=== PATIENT | female | born 1940 | race American Indian/Alaskan Native ===

== ENCOUNTER 2018-02-25 09:24 | Emergency (ER) | payer MEDICARE, OTHER ==
[2018-02-25 09:29] VITALS: TEMP 98.1
[2018-02-25 11:11] LABS: ALB/GLOB RATIO 1.2 (1.0-2.1); ALBUMIN 4.2 g/dL (3.5-5.0); ALT/SGPT 23 U/L (9-52); AST/SGOT 16 U/L (14-36); BASO % 1.2 % (0.0-2.0); BLOOD UREA NITROGEN 10 mg/dl (7-17); CALCIUM 9.8 mg/dL (8.4-10.2); EOS % 0.9 % (0.0-4.0); GFR NON-AFRICAN AMERICAN > 60; HEMOGLOBIN 13.8 g/dL (12.0-16.0); LYMPH # 1.3 K/uL (1.0-4.3); LYMPH % 32.8 % (20.0-40.0); MEAN CELL VOLUME 89.3 fl (81.0-99.0); MEAN CORPUSCULAR HEMOGLOBIN 28.1 pg (27.0-31.0); MEAN CORPUSCULAR HGB CONC 31.5 g/dL (33.0-37.0); MEAN PLATELET VOLUME 8.6 fl (7.2-11.7); MONO # 0.4 K/uL (0.0-0.8); MONO % 10.6 % (0.0-10.0); NEUT # 2.1 K/uL (1.8-7.0); NEUT % 54.5 % (50.0-75.0); NRBC % 0.2 % (0.0-0.0); RBC 4.92 Mil/uL (3.80-5.20); RED CELL DISTRIBUTION WIDTH 14.3 % (11.5-14.5); WHITE BLOOD COUNT 3.9 K/uL (4.8-10.8)
--- NOTE | 2018-02-25 11:41 | ED PDOC ---
HPI: Psych/Substance Abuse Time Seen by Provider: 02/25/18 09:51 Chief Complaint (Nursing): Psychiatric Evaluation History Per: Family (According to patient's , Jess is schizophrenic and occasionally becomes uncooperative and not make any sense. States that she has refused medications and personal hygiene at home. The patient is not capable of cooperating with relaying how she is feeling. ) Past Medical History Reviewed: Historical Data, Nursing Documentation, Vital Signs Vital Signs: Last Vital Signs Temp 98.1 F 02/25/18 09:28 Pulse 96 H 02/25/18 09:28 Resp BP 132/96 H 02/25/18 09:28 Pulse Ox 100 02/25/18 09:28 - Medical History PMH: No Chronic Diseases, Schizophrenia - Family History Family History: States: No Known Family Hx - Living Arrangements Living Arrangements: With Family - Allergies Allergies/Adverse Reactions: Allergies Allergy/AdvReac Type Severity Reaction Status Date / Time No Known Allergies Allergy Verified 02/25/18 09:33 Review of Systems ROS Statement: Except As Marked, All Systems Reviewed And Found Negative Review Of Systems: ROS cannot be obtained secondary to pt's inabilty to answer questions. Physical Exam - Reviewed Nursing Documentation Reviewed: Yes Vital Signs Reviewed: Yes - Physical Exam Appears: Positive for: Well, Non-toxic, No Acute Distress Head Exam: Positive for: ATRAUMATIC, NORMAL INSPECTION, NORMOCEPHALIC Skin: Positive for: Normal Color, Warm, DRY Eye Exam: Positive for: EOMI, Normal appearance, PERRL ENT: Positive for: Normal ENT Inspection Neck: Positive for: Normal, Painless ROM Cardiovascular/Chest: Positive for: Regular Rate, Rhythm Respiratory: Positive for: CNT, Normal Breath Sounds Gastrointestinal/Abdominal: Positive for: Normal Exam, Soft Back: Positive for: Normal Inspection Extremity: Positive for: Normal ROM Neurologic/Psych: Positive for: Alert, Oriented - Laboratory Results Result Diagrams: 02/25/18 10:50 02/25/18 10:50 - ECG O2 Sat by Pulse Oximetry: 100 Medical Decision Making Medical Decision Making: does not have legal guardianship. patient to be referred for [facility] [place] medical clearance. Patient is medically cleared for [facility] [place]. Disposition - Clinical Impression Clinical Impression: Psychiatric disorder, Schizophrenia - Patient ED Disposition Is Patient to be Admitted: Transfer of Care - Disposition Disposition: Transfer of Care Disposition Time: 15:35 Condition: FAIR Instructions: Schizophrenia Forms: [facility] (Yakut) Patient Signed Over To: Jenn Ulloa Present On Arrival: None
--- NOTE | 2018-02-25 13:10 | CT ---
Date of service: 02/25/2018 PROCEDURE: CT HEAD WITHOUT CONTRAST. HISTORY: Altered mental state COMPARISON: None available. TECHNIQUE: Axial computed tomography images were obtained through the head/brain without intravenous contrast. Radiation dose: Total exam DLP = 1752.98 mGy-cm. This CT exam was performed using one or more of the following dose reduction techniques: Automated exposure control, adjustment of the mA and/or kV according to patient size, and/or use of iterative reconstruction technique. FINDINGS: HEMORRHAGE: No acute parenchymal, subarachnoid nor extra-axial hemorrhage. BRAIN: Moderate to significant chronic periventricular white matter ischemic changes seen extending peripherally into the deep and subcortical white matter both cerebral hemispheres. There is also some extension these changes into the white matter tracts of both basal nuclei. Note that the possibility of a small hyperacute infarct cannot be excluded on this study. There appear to be some localized mild encephalomalacic changes right inferior temporal lobe associated with ex vacuo dilatation of the right temporal horn. Moderate to significant central volume loss. VENTRICLES: No obstructive hydrocephalus. CALVARIUM: There are no acute calvarial fracture seen. PARANASAL SINUSES: Unremarkable as visualized. No significant inflammatory changes. MASTOID AIR CELLS: Unremarkable as visualized. No inflammatory changes. OTHER FINDINGS: None. IMPRESSION: Moderate to significant chronic periventricular white matter ischemic changes seen extending peripherally into the deep and subcortical white matter both cerebral hemispheres. There is also some extension these changes into the white matter tracts of both basal nuclei. Note that the possibility of a small hyperacute infarct cannot be excluded on this study. There appear to be some localized mild encephalomalacic changes right inferior temporal lobe associated with ex vacuo dilatation of the right temporal horn. Moderate to significant central volume loss.
[2018-02-25 13:17] LABS: SQUAMOUS EPITHIAL < 1 /hpf (0-5); URINE BACTERIA RARE (<OCC); URINE BILIRUBIN NEGATIVE (NEGATIVE); URINE BLOOD NEGATIVE (NEGATIVE); URINE CLARITY SLIGHTY-CLOUDY (Clear); URINE COLOR YELLOW (YELLOW); URINE GLUCOSE (UA) NEG (NEGATIVE); URINE LEUKOCYTE ESTERASE TRACE Leu/uL (Negative); URINE PROTEIN NEGATIVE (NEGATIVE)
[2018-02-25 13:37] LABS: BARBITURATES, UR NEGATIVE (NEGATIVE); BENZODIAZEPINES, UR NEGATIVE (NEGATIVE); OPIATES, UR NEGATIVE (NEGATIVE); PHENCYCLIDINE, UR NEGATIVE (NEGATIVE)
--- NOTE | 2018-02-25 15:43 | ED PDOC ---
- Laboratory Results Result Diagrams: 02/25/18 10:50 02/25/18 10:50 - ECG O2 Sat by Pulse Oximetry: 100 Medical Decision Making Medical Decision Making: Time: 1600 --Patient endorsed to provider by Dr. José, pending [facility] [place]. 1800 Evaluated by [facility] and pt is stable for discharge with outpatient followup. Discharged to family's care Scribe Attestation: Documented by Alyce Peña, acting as a scribe for Jenn Ulloa MD. Provider Scribe Attestation: All medical record entries made by the Scribe were at my direction and per sonally dictated by me. I have reviewed the chart and agree that the record accurately reflects my personal performance of the history, physical exam, medical decision making, and the department course for this patient. I have also personally directed, reviewed, and agree with the discharge instructions and disposition. Disposition - Clinical Impression Clinical Impression: Dementia - POA Present On Arrival: None - Disposition Disposition: Routine/Home Disposition Time: 18:00 Condition: STABLE Additional Instructions: FOLLOW UP INSTRUCTED BY MECHANICAL ENGINEERING LECTURER Instructions: Dementia (DC)
--- NOTE | 2018-02-25 18:08 | RAD ---
Date of service: 02/25/2018 HISTORY: Altered mental status COMPARISON: Comparison made with plain film radiographs 08/31/2012. FINDINGS: LUNGS: Poor inspiration with low lung volumes, crowded bronchovascular markings and mild left basilar atelectasis and/or scarring. PLEURA: No significant pleural effusion identified, no pneumothorax apparent. CARDIOVASCULAR: Suspect minimal aortic atherosclerotic calcification present. Cardiomegaly.. No pulmonary vascular congestion. OSSEOUS STRUCTURES: No significant abnormalities. VISUALIZED UPPER ABDOMEN: Normal. OTHER FINDINGS: None. IMPRESSION: Atelectasis and or scarring poor inspiration with low lung volumes and crowded bronchovascular markings. Mild left basilar
[2018-02-25 19:47] VITALS: BP 114/68; PULSE 89; RESP 17
--- NOTE | 2018-02-26 00:20 | CARD ---
APPROVED REPORT Date of service: 02/25/2018 EKG Measurement Heart [id number] <Conclusion> Sinus rhythm with 1st degree AV block Possible Left atrial enlargement Left axis deviation Possible Lateral infarct, age undetermined Inferior infarct, age undetermined Abnormal ECG
[2018-03-01 16:24] VITALS: O2SAT 100
== END 2018-02-25 19:47 | disposition home or self-care (01) ==
LOC: H.ER 09:24
DX: F03.90 Unspecified dementia, unspecified severity, without behavioral disturbance, psychotic disturbance, mood disturbance, and anxiety (principal); F20.9 Schizophrenia, unspecified; I44.0 Atrioventricular block, first degree
CPT/HCPCS: 70450; 71045; 80053; 81003; 85025; 93005; 96372; 99284; G0480; J2060